=== PATIENT | female | born 1985 | race Caucasian/White ===

== ENCOUNTER 2017-11-14 16:20 | Emergency (ER) | payer SELFPAY ==
[~2017-11-14] VITALS: Ht 162.6 cm; Wt 99.8 kg
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
[2017-11-14] MEDS ORDERED: ONDANSETRON 4 MG TAB.RAPDIS ONE (17:41)
[2017-11-14] MEDS ORDERED: HYDROCODONE/APAP 5/325MG 1 EACH TABLET ONE (17:41)
[2017-11-14] MEDS ORDERED: ONDANSETRON 4 MG TAB.RAPDIS PO ONE (18:00)
[2017-11-14] MEDS ORDERED: HYDROCODONE/APAP 5/325MG 1 EACH TABLET PO ONE (18:00)
[2017-11-14] MEDS ORDERED: CYCLOBENZAPRINE 10 MG TABLET ONE (18:21)
[2017-11-14] MEDS ORDERED: CYCLOBENZAPRINE 10 MG TABLET PO ONE (18:30)
[2017-11-14] MEDS ORDERED: KETOROLAC TROMETHAMINE INJ 60 MG/2 ML VIAL IM ONE ×2 (20:00)
--- NOTE | 2017-11-14 20:24 | NUR ---
ASSUMED D/C CARE ONLY AT THIS TIME ON BEHALF OF PRIMARY NURSE MEAGHAN. RE-EVALUATED BY LEILA LANDIN. Patient discharged to home in stable condition. Written and verbal after care instructions given. Patient verbalizes understanding of instruction. Ambulatory with a steady gait accompanied by s/o.
[2017-11-14 20:31] VITALS: BP 127/78
== END 2017-11-14 20:32 | disposition home or self-care (01) ==
LOC: ER 16:24
DX: M54.2 Cervicalgia (principal); M25.511 Pain in right shoulder; M25.521 Pain in right elbow; G43.909 Migraine, unspecified, not intractable, without status migrainosus; K21.9 Gastro-esophageal reflux disease without esophagitis; Z88.8 Allergy status to other drugs, medicaments and biological substances; V49.49XA Driver injured in collision with other motor vehicles in traffic accident, initial encounter; Y93.89 Activity, other specified; Y92.413 State road as the place of occurrence of the external cause; Y99.8 Other external cause status
CPT/HCPCS: 72040; 72125; 73030; 73070; 96372; 99284; A4606; J1885; Q0162; Z7610